=== PATIENT | female | born 1980 | race African-American/Black ===

== ENCOUNTER 2024-04-15 23:55 | Emergency (ER) | payer MEDICAID ==
[~2024-04-15] VITALS: Ht 165.1 cm; Wt 113.0 kg
[~2024-04-15 23:55] MED LIST: AMLO10TA4 PO; ASPI-1079 PO; HYDR25TA PO; METF500T PO; TRAM50TA3 PO; VITA-261 MT
[2024-04-15 23:57] VITALS: O2SAT 99
[2024-04-16 00:07] VITALS: BP 145/69; PULSE 98; TEMP 98.5; O2SAT 98
[2024-04-16] MEDS: CEFTRIAXONE SODIUM 1G VIAL IM ONE (02:30)
[2024-04-16] MEDS ORDERED: SULF1TAB48 MT (02:39)
[2024-04-16 04:00] VITALS: RESP 18
== END 2024-04-16 04:05 | disposition admitted as inpatient to this hospital (09) ==
LOC: ER 23:55
DX: M79.671 Pain in right foot (principal); I10 Essential (primary) hypertension; M79.89 Other specified soft tissue disorders; E11.9 Type 2 diabetes mellitus without complications; Z90.710 Acquired absence of both cervix and uterus; Z79.899 Other long term (current) drug therapy; Z79.82 Long term (current) use of aspirin
CPT/HCPCS: 96372; 99285; 82962; 93971; 73630; J0696; Z7610